=== PATIENT | male | born 1960 | race Caucasian/White ===

== ENCOUNTER 2016-08-19 12:25 | Emergency (ER) | payer OTHER ==
[~2016-08-19] VITALS: Ht 180.3 cm; Wt 103.4 kg
[2016-08-19 15:00] LABS: HEMATOCRIT 40.5 % (38.0-50.0); MCH 28.9 PG (29.0-34.0); MCHC 33.3 G/DL (30.0-36.0); MCV 86.7 FL (86-99); MEAN PLAT.VOLUME 10.5 uM^3 (9.0-12.4); PLATELET COUNT 239 K/uL (156-360); RBC DIS.WIDTH-CV 13.1 % (11.8-14.6); RBC DIS.WIDTH-SD 41.1 % (39-53); RED BLOOD COUNT 4.67 M/uL (4.00-5.50)
[2016-08-19 15:10] LABS: CHLORIDE 112 mEq/L (99-109); POTASSIUM 4.5 mEq/L (3.7-5.4); SODIUM 144 mEq/L (136-147)
[2016-08-19 15:12] LABS: GLUCOSE 91 mg/dL (70-99)
[2016-08-19 15:14] LABS: ANION GAP 7 MEQ/L (2-14)
[2016-08-19 15:16] LABS: GFR ESTIMATE (CALCULATED) > 59 mL/min/
[2016-08-19 15:17] LABS: UREA NITROGEN (BUN) 18 mg/dL (9-23)
[2016-08-19 16:12] LABS: ADD MIUA? NO; BILIRUBIN NEGATIVE; BLOOD NEGATIVE; COLOR YELLOW ((YELLOW)); GLUCOSE (STRIP) NEGATIVE; KETONES NEGATIVE; LEUKOCYTES NEGATIVE; NITRITE NEGATIVE; PROTEIN (STRIP) NEGATIVE; SPECIFIC GRAVITY 1.019 (1.000-1.030); UROBILINOGEN 0.2 MG/DL (0.2-1.0)
[2016-08-19] MEDS ORDERED: MUCINEX D ER T1 EACH PO (16:46)
[2016-08-19] MEDS ORDERED: ANTIVERT25 MG PO (16:46)
[2016-08-19] MEDS ORDERED: FLONASE16 G1 BOTH NARES (16:46)
[2016-08-19 17:08] VITALS: BP 137/73
== END 2016-08-19 17:09 | disposition home or self-care (01) ==
LOC: EME 12:25
PROVIDERS: Physician Assistant
DX: H65.03 Acute serous otitis media, bilateral (principal); H81.399 Other peripheral vertigo, unspecified ear; R42 Dizziness and giddiness; E86.0 Dehydration
CPT/HCPCS: 80048; 81003; 85027; 93005; 99281; 99285; J7030